=== PATIENT | female | born 1995 ===

== ENCOUNTER 2024-06-28 05:57 | Inpatient (IN) | payer BC ==
[2024-06-28] MEDS: Lactated Ringers 1,000 ML IV SCH (06:15)
[2024-06-28] MEDS ORDERED: Carboprost Tromethamine 250 MCG/1 ML Amp IM PRN ×2 (06:26→11:56)
[2024-06-28] MEDS ORDERED: Acetaminophen 325 MG Tab PO PRN ×2 (06:26→11:56)
[2024-06-28] MEDS ORDERED: Ondansetron 4 MG/2 ML SDV IVPUSH PRN (06:26)
[2024-06-28] MEDS ORDERED: Methylergonovine 0.2 MG/1 ML Amp IM PRN (06:26)
[2024-06-28] MEDS ORDERED: Misoprostol 400 MCG (4 X 100 MCG TAB) RECTAL PRN ×2 (06:26→11:56)
[2024-06-28] MEDS ORDERED: Sodium Chloride 0.9% 10 ML Syringe FLUSH PRN ×2 (06:26→11:56)
[2024-06-28] MEDS ORDERED: Tranexamic Acid 1,000 MG in Sodium Chloride 0.9% 100 ML IV PRN ×2 (06:26→11:56)
[2024-06-28 06:37] LABS: HEMATOCRIT 36.3 % (37.0-47.0); HEMOGLOBIN 11.8 g/dL (12.0-16.0); MEAN CORPUSCULAR HEMOGLOBIN 29.9 pg (27.0-34.0); MEAN CORPUSCULAR HGB CONC 32.5 g/dL (33.0-35.0); MEAN CORPUSCULAR VOLUME 92.1 fL (80-100); RED BLOOD CELL COUNT 3.94 10^6/uL (4.2-5.4); WHITE BLOOD CELL COUNT,WBC 11.8 10^3/uL (5.0-10.0)
[2024-06-28] MEDS: Oxytocin/Normal Saline 30 UNIT/500 ML BAG IV SCH (11:10)
[2024-06-28] MEDS ORDERED: Acetaminophen/oxyCODONE 325-5 MG Tab PO PRN (11:56)
[2024-06-28] MEDS ORDERED: Simethicone 80 MG Tab.Chew PO PRN (11:56)
[2024-06-28] MEDS ORDERED: Oxytocin 10 Units/1 ML SDV IM PRN (11:56)
[2024-06-28] MEDS: Benzocaine/Menthol 20%-0.5% Spray 78 GM Cannister TOP PRN (12:43)
[2024-06-28] MEDS: Witch Hazel Medicated Pads 100/Jar TOP PRN (12:43)
[2024-06-28] MEDS: Ibuprofen 800 MG Tab PO SCH (12:49)
[2024-06-28] MEDS: Lidocaine 1% 30 ML SDV INJECT ONE (15:55)
[2024-06-28] MEDS: Lactated Ringers 1,000 ML IV ONE (15:55)
[2024-06-28] MEDS: Hydrocortisone 2.5% Crm 30 GM Tube TOP PRN (20:51)
[2024-06-28] MEDS: Docusate Sodium 100 MG Cap PO PRN (20:52)
[2024-06-29] MEDS: Prenatal Multivitamin with Calcium/Folic Acid/Iron Tab PO SCH (08:17)
[2024-06-29 09:16] LABS: HEMATOCRIT 31.5 % (37.0-47.0); HEMOGLOBIN 10.1 g/dL (12.0-16.0)
== END 2024-06-29 13:30 | disposition home or self-care (01) | DRG 560 ==
LOC: DL.OBCHECK 05:57 → DL.OB 06:26 → OBSVTOIN 11:04 → DL.OB 11:04
PROVIDERS: ADMIT Student in an Organized Health Care Education/Training Program; ATTEND Student in an Organized Health Care Education/Training Program
PROC: 10D07Z6 Extraction of Products of Conception, Vacuum, Via Natural or Artificial Opening (ICD-10-PCS; principal; 2024-06-28)
PROC: 0KQM0ZZ Repair Perineum Muscle, Open Approach (ICD-10-PCS; 2024-06-28)
PROC: 3E0R3BZ Introduction of Anesthetic Agent into Spinal Canal, Percutaneous Approach (ICD-10-PCS; 2024-06-28)
PROC: 00HU33Z Insertion of Infusion Device into Spinal Canal, Percutaneous Approach (ICD-10-PCS; 2024-06-28)
PROC: 10907ZC Drainage of Amniotic Fluid, Therapeutic from Products of Conception, Via Natural or Artificial Opening (ICD-10-PCS; 2024-06-28)
DX: O48.0 Post-term pregnancy (principal); Z3A.40 40 weeks gestation of pregnancy; Z37.0 Single live birth; O77.0 Labor and delivery complicated by meconium in amniotic fluid; O70.1 Second degree perineal laceration during delivery; O71.7 Obstetric hematoma of pelvis
CPT/HCPCS: 01967; 36415; 59409; 85014; 85018; 85027; A9270-GY; C1729; J2590; J7120